=== PATIENT | female | born 1950 | race Caucasian/White ===

== ENCOUNTER 2018-05-06 13:17 | Emergency (ER) | END 2018-05-06 15:19 | disposition home or self-care (01) ==

== ENCOUNTER 2019-01-25 10:56 | Emergency (ER) | payer MEDICARE, OTHER ==
[~2019-01-25] VITALS: Wt 119.0 kg
[~2019-01-25 10:56] MED LIST: MELO7.5T38 PO; MTF1000T PO; NAPR-985 PO; OXYC-279 PO; TRAM50TA2 PO
--- NOTE | 2019-01-25 12:28 | ERD ---
ER Documentation Chief Complaint Chief Complaint FLU LIKE SYMPTOMS SINCE LAST TUESDAY HPI 69-year-old female with past medical history of diabetes type 2, hypertension who presents with complaint of flulike symptoms since Tuesday. Patient reports cough productive of thick yellow sputum. Experiencing chest discomfort with cough. Also complained of bilateral ear fullness and pain. She otherwise denies concerning type chest pain, [place]OP[place], fever, chills, nausea, vomiting, diarrhea, abdominal pain, sick contacts, urinary symptoms. BP noted to be elevated but patient states she did not take blood pressure medication before coming to the emergency room. At time of evaluation patient in nontoxic- appearing in no acute distress. ROS All systems reviewed and are negative except as per history of present illness. Medications Home Meds Active Scripts Dextromethorphan Hb-Promethazine Hcl* (Promethazine DM* Syrup) 473 Ml Syrup, 5 ML PO Q6 PRN for COUGH for 10 Days, ML Prov:COLLETTE LEDEZMA PA-C 01/25/19 Meloxicam* (Meloxicam*) 7.5 Mg Tablet, 7.5 MG PO DAILY, #30 TAB Prov:BRITTA GEORGE PA-C 05/06/18 Oxycodone HCl/Acetaminophen (Percocet 5-325 mg Tablet) 1 Each Tablet, 1 EACH PO TID for PAIN AND/OR INFLAMMATION, #12 TAB Prov:ELIAS SAUER MD 08/02/16 Naproxen* (Naprosyn*) 500 Mg Tablet, 500 MG PO BID PRN for PAIN AND/OR INFLAMMATION, #30 TAB Prov:SHERRIE WILKERSON PA-C 07/13/16 Tramadol HCl (Tramadol HCl) 50 Mg Tablet, 50 MG PO Q6 PRN for PAIN, #20 TAB Prov:SHERRIE WILKERSON PA-C 07/13/16 Reported Medications Metformin* (Glucophage*) 1,000 Mg Tablet, 1000 MG PO BID, #60 TAB 08/02/16 Allergies Allergies: Coded Allergies: No Known Allergy (Unverified , 01/25/19) PMhx/Soc Medical and Surgical Hx: pt denies Surgical Hx History of Surgery: No Anesthesia Reaction: No Hx Neurological Disorder: No Hx Respiratory Disorders: No Hx Cardiac Disorders: No Hx Psychiatric Problems: No Hx Miscellaneous Medical Probl: Yes (DM) Hx Alcohol Use: No Hx Substance Use: No Hx Tobacco Use: No Smoking Status: Never smoker FmHx Family History: No diabetes, No coronary disease, No other Physical Exam Vitals Vital Signs Date Temp Pulse Resp B/P (MAP) Pulse Ox O2 O2 Flow FiO2 Time Delivery Rate 01/25/19 98.2 84 18 160/89 99 11:00 (112) Physical Exam I have reviewed the triage vital signs. Const: Well nourished, well developed, appears stated age Eyes: PERRL, no conjunctival injection HENT: NCAT, Neck supple without meningismus CV: RRR, Warm, well-perfused extremities RESP: CTAB, Unlabored respiratory effort GI: soft, non-tender, non-distended, no masses MSK: No gross deformities appreciated Skin: Warm, dry. No rashes Neuro: grossly non focal Psych: Appropriate mood and affect. Procedures/MDM 69-year-old female presents with complaint of persistent cough. The patient's clinical presentation is very consistent with an acute viral syndrome, hops from colitis given persistent cough. no evidence of pneumonia. The patient is well-appearing without respiratory distress. X-ray of chest without acute finding. No indication for Tamiflu. The patient does not exhibit any clinical signs or symptoms concerning for serious bacterial infection or systemic illness. Patient is afebrile. Based on history and clinical exam findings the patient does not appear to have evidence of pneumonia, strep pharyngitis, urinary tract infection, bacteremia, sepsis, or meningitis. For these reasons I do not believe it is necessary to obtain laboratory testing or diagnostic imaging. I believe it would be appropriate for symptom control, and close outpatient primary care follow-up. Discharge with promethazine DM for cough We discussed follow up with the patient's primary care doctor within 24 to 48 hours as needed. We also discussed return to the emergency room for worsening symptoms or worsening condition. DISPOSITION PLAN: We discussed follow up with the patient's primary care doctor within 24 to 48 hours. Patient counseled regarding my diagnostic impression and care plan. Prior to discharge all questions answered. Pt agrees with treatment plan and understands strict return precautions. Precautionary instructions provided including instructions to return to the ER if not improving or for any worsening or changing symptoms or concerns. Disclaimer: Inadvertent spelling and grammatical errors are likely due to EHR/dictation software use and do not reflect on the overall quality of patient care. Also, please note that the electronic time recorded on this note does not necessarily reflect the actual time of the patient encounter. Departure Condition: COLLETTE Granados PA-C January 25, 2019 12:28
[2019-01-25] MEDS ORDERED: D-ME473S2 PO (12:32)
[2019-01-25 13:44] VITALS: BP 168/77; PULSE 73; RESP 18
== END 2019-01-25 13:45 | disposition home or self-care (01) ==
LOC: FTE 10:56
DX: R05 Cough (principal); E11.9 Type 2 diabetes mellitus without complications; I10 Essential (primary) hypertension; Z79.84 Long term (current) use of oral hypoglycemic drugs
CPT/HCPCS: 71046